=== PATIENT | male | born 1990 | race Caucasian/White ===

== ENCOUNTER 2018-07-16 15:37 | Emergency (ER) | payer OTHER ==
[~2018-07-16] VITALS: Ht 182.9 cm; Wt 103.9 kg
[2018-07-16 15:48] VITALS: BP 146/90; Ht 182.9 cm; Wt 103.9 kg
== END 2018-07-16 19:16 | disposition home or self-care (01) ==
LOC: ED 15:37
DX: S01.01XA Laceration without foreign body of scalp, initial encounter (principal); S16.1XXA Strain of muscle, fascia and tendon at neck level, initial encounter; S69.82XA Other specified injuries of left wrist, hand and finger(s), initial encounter; V49.88XA Car occupant (driver) (passenger) injured in other specified transport accidents, initial encounter; Y93.89 Activity, other specified; Y92.89 Other specified places as the place of occurrence of the external cause; Y99.8 Other external cause status
CPT/HCPCS: 90715; J2001; Q0092